=== PATIENT | female | born 1995 | race Caucasian/White ===

== ENCOUNTER → 2017-11-07 16:36 | Outpatient (CLI) | payer OTHER, SELFPAY ==
--- NOTE | 2017-11-07 16:40 | DI.MRI.S_ITS ---
PROCEDURE: MR LUMBAR SPINE WO CON INDICATIONS: Low back pain. Left hip pain TECHNIQUE: Noncontrast sagittal T1 spin echo and T2 fast echo, sagittal STIR, axial T1 and T2 fast spin echo through the lumbar spine. In cases with scoliosis, additional coronal T2 fast spin echo may be performed. COMPARISON: [facility] [place], CR, XR LUMBAR SPINE FLEXION EXTENSION, 10/23/2017, 14:09. FINDINGS: Image quality: Excellent. Alignment and Curvature: There is normal bony alignment. Bone Marrow: Marrow is of normal overall signal. No acute vertebral body compression fractures. Spinal Cord: Conus medullaris terminates at the L1 level. Visualized cord demonstrates normal signal and size. Paraspinous Soft Tissues: No paravertebral masses. L1-L2: Slight disc narrowing and signal loss. Minimal left central protrusion slightly indenting the thecal sac. No stenosis. L2-L3: Normal appearance. L3-L4: Normal appearance. L4-L5: Disc degeneration with narrowing and signal loss. There is a prominent central posterior protrusion estimated at 6 mm in thickness, compressing the thecal sac to a sagittal diameter of 7.5 mm, moderate stenosis. No foraminal stenosis. Early right facet arthropathy. No ligamentous thickening. L5-S1: Disc degeneration with narrowing and signal loss. The C6 millimeter thick central protrusion is present with mild caudal migration. This causes moderate central canal stenosis however the thecal sac is small at this level and there is no appreciable compression or displacement of the sac or of the S1 nerve roots. No foraminal stenosis. Mild facet arthropathy and ligamentous thickening, right greater than left. IMPRESSION: 1. Degenerative disc disease, mild at L1-2 and moderate at L4-5 and L5-S1. Prominent posterior central disc protrusions L4-5 and L5-S1. These cause moderate central canal stenosis at the L4-5 and L5-S1 levels. 2. No foraminal stenosis seen at any level. 3. Mild facet arthropathy L4-5 and L5-S1, right greater than left. Dictated by: Adán Beavers M.D. on 11/08/2017 at 7:59 Approved by: Adán Beavers M.D. on 11/08/2017 at 8:11
== END ==
PROVIDERS: Visit Provider Orthopaedic Surgery
DX: M51.37 Other intervertebral disc degeneration, lumbosacral region (principal); M51.36 Other intervertebral disc degeneration, lumbar region; M54.5 Low back pain; M25.552 Pain in left hip; M48.061 Spinal stenosis, lumbar region without neurogenic claudication; M48.07 Spinal stenosis, lumbosacral region; M47.816 Spondylosis without myelopathy or radiculopathy, lumbar region; M47.817 Spondylosis without myelopathy or radiculopathy, lumbosacral region
CPT/HCPCS: 72148

== ENCOUNTER 2020-12-11 10:03 | Emergency (ER) | payer OTHER, SELFPAY ==
[2020-12-11] VITALS (9 sets, daily range): BP systolic 108–140; BP diastolic 52–85; PULSE 70–81; RESP 12–14; TEMP 36.2; O2SAT 92–100; BMI 45.4
--- NOTE | 2020-12-11 10:41 | ED_ITS ---
HPI - General Adult General Chief complaint: Urogenital-Female Stated complaint: Poss Kidney stones- sent by [facility] Time Seen by Provider: 12/11/20 10:35 Source: patient Mode of arrival: Ambulatory Limitations: no limitations History of Present Illness HPI narrative: 25-year-old female who was sent over from the walk-in clinic for evaluation of right-sided flank pain and concern for renal stone. She states she was woken this morning from sleep with right-sided flank pain. Has been consistent since then. Does get somewhat better with putting pressure over the area but does not get better worse with movement. Does not get better worse with urination. No change in bowel habits. Has had her gallbladder out but no other abdominal surgeries. No chest pain. No shortness of breath. No fevers. Has had nausea and vomiting. No vaginal bleeding. Was seen in the walk-in clinic and had a urinalysis which showed blood and leukocyte esterase. Was sent to the emergency department for further imaging. Related Data Previous Rx's Medication Instructions Recorded hydrocodone 5 mg-acetaminophen 325 1 tab PO Q4-6H PRN #10 tab 12/11/20 mg tablet ondansetron 4 mg disintegrating 4 mg PO Q6H PRN #14 tab 12/11/20 tablet Allergies Allergy/AdvReac Type Severity Reaction Status Date / Time No Known Drug Allergies Allergy Verified 12/11/20 10:19 Review of Systems Constitutional Constitutional: Denies fever(s) and Denies headache(s) ENT Ears, Nose, Mouth, and Throat: Denies headache(s) Cardiovascular Cardiovascular: Reports system reviewed and no additional complaints, except as documented Respiratory Respiratory: Reports system reviewed and no additional complaints, except as documented Gastrointestinal Gastrointestinal: Denies abdominal pain, Denies change in bowel habits, Reports nausea and Reports vomiting Genitourinary Genitourinary: Reports system reviewed and no additional complaints, except as documented Musculoskeletal Musculoskeletal: Reports system reviewed and no additional complaints, except as documented Integumentary/Breasts Skin/Breast: Reports system reviewed and no additional complaints, except as documented Neurologic Neurologic: Denies headache(s) Hematologic/Lymphatic On Anticoagulants: No Allergic/Immunologic Allergic/Immunologic: Reports system reviewed and no additional complaints, except as documented Patient History Medical History Anxiety Social History (Reviewed 12/11/20 @ 10:48 by CHRISSY Montanez Smoking Status: Never smoker Smoking Status: Never smoker alcohol intake frequency: 0-2 drinks per day Substance Use Type: does not use Exam Initial Vital Signs Initial Vital Signs: Vital Signs Temperature 97.1 F L 12/11/20 10:16 Pulse Rate 81 12/11/20 10:16 Respiratory Rate 14 12/11/20 10:16 Blood Pressure 108/52 L 12/11/20 10:16 Pulse Oximetry 99 12/11/20 10:16 Const General: cooperative and comfortable HENMT Head: normal to inspection Eyes General: appearance normal, both eyes and all related structures Resp Auscultation: clear to auscultation bilaterally Cardio Rate: regular rate Rhythm: regular rhythm GI Inspection: normal to inspection Palpation: soft Back/Spine/Pelvis Back: No CVA tenderness Skin General: no rashes or lesions noted Neuro General: patient alert, patient awake, patient oriented x3 and moves all extremities Extrem General: normal to inspection and capillary refill normal Psych Appearance: grossly normal and well kempt Course Orders Ordered: ED Orders 12/11/20 10:00 Test Urine Stat 12/11/20 10:43 CT kidney ureter bladder (KUB) Stat 12/11/20 10:53 Complete Blood Count AUTO DIFF Stat Comprehensive Metabolic Panel Stat Lipase Stat Discontinued Medications Hydromorphone HCl (Hydromorphone 0.5 Mg Inj) 0.5 mg IV NOW ONE Stop: 12/11/20 12:28 Last Admin: 12/11/20 12:30 Dose: 0.5 mg Documented by: MARKELL Sodium Chloride (Normal Saline 0.9%) 1,000 mls @ 1,000 mls/hr IV BOLUS ONE Stop: 12/11/20 11:19 Last Admin: 12/11/20 11:01 Dose: 1,000 mls/hr Documented by: MARKELL Ketorolac Tromethamine (Ketorolac 30 Mg/Ml Vial) 30 mg IV NOW ONE Stop: 12/11/20 10:44 Last Admin: 12/11/20 11:01 Dose: 30 mg Documented by: MARKELL Ondansetron HCl (Ondansetron 4 Mg/2 Ml Inj) 4 mg IV NOW ONE Stop: 12/11/20 10:21 Last Admin: 12/11/20 11:01 Dose: 4 mg Documented by: MARKELL Ondansetron HCl (Ondansetron 4 Mg/2 Ml Inj) 4 mg IV NOW ONE Stop: 12/11/20 11:51 Last Admin: 12/11/20 12:03 Dose: 4 mg Documented by: MARKELL Vital Signs Vital signs: Vital Signs - 8 hr 12/11/20 10:16 12/11/20 11:11 12/11/20 11:16 Temperature 97.1 F L Pulse Rate 81 70 78 Respiratory Rate 14 Blood Pressure 108/52 L 110/65 Pulse Oximetry 99 98 99 Medical Decision Making Lab Data Lab results reviewed: Yes I reviewed the patient's lab results. Result diagrams: 12/11/20 10:53 12/11/20 10:53 Labs: Lab Results 12/11/20 12/11/20 12/11/20 Range/Units 10:00 10:53 10:53 WBC 15.8 H (4.5-11.0) X10^3/uL RBC 4.84 (4.0-5.2) X10^6/uL Hgb 13.1 (12.0-16.0) g/dL Hct 40.5 (36-46) % MCV 83.5 (80-100) fL MCH 27.0 (26-34) PG MCHC 32.3 (30-36) % RDW 13.8 (11.6-14.8) % Plt Count 288 (150-400) X10^3/uL Neut % (Auto) 88.6 H (50-75) % Lymph % (Auto) 8.3 L (25-40) % [place] % (Auto) 2.7 L (3-14) % Eos % (Auto) 0.1 L (2-4) % Baso % (Auto) 0.3 (0-2) % Neut # (Auto) 58678 H (0662-3675) /uL Lymph # (Auto) 1300 (2472-1379) /uL [place] # (Auto) 400 (0-900) /uL Eos # (Auto) 0 (0-450) /uL Baso # (Auto) 100 (0-100) /uL Sodium 136 L (137-145) mmol/L Potassium 4.3 (3.4-5.1) mmol/L Chloride 103 (98-107) mmol/L Carbon Dioxide 25 (22-32) mmol/L BUN 14 (7-17) mg/dL Creatinine 0.84 (0.52-1.04) mg/dL Estimated GFR > 60.0 (>60) mL/min BUN/Creatinine Ratio 16.7 (6-22) Glucose 116 H (70-100) mg/dL Calcium 9.3 (8.4-10.2) mg/dL Total Bilirubin 0.3 (0.2-1.3) mg/dL AST 20 (14-36) IU/L ALT 18 (<35) IU/L Alkaline Phosphatase 69 (38-126) U/L Total Protein 7.2 (6.3-8.2) g/dL Albumin 4.0 (3.5-5.0) g/dL Globulin 3.2 (1.7-4.1) g/dL Albumin/Globulin Ratio 1.3 (1.0-2.8) Lipase 25 (23-300) U/L Urine Test Negative (Negative) Imaging Data CT scan - abdomen/pelvis: Radiologist's Impression: [place] [address] CT Scan Report Signed Patient: Autumn Hidalgo MR#: [id number] : 1995 Acct:[id number] Age/Sex: 25 / F Date of Service: 12/11/20 Loc: Accession Number: [id number] ?? Procedure: CT kidney ureter bladder (KUB) Ordering Provider: Jed Lara D.O. PROCEDURE:? CT KIDNEY URETER BLADDER (KUB) ? INDICATIONS:? Right-sided flank pain concern for stone ? TECHNIQUE:? Axial sections were acquired from the lung bases to the pubic symphysis.? Coronal and sagittal reformats were performed.? For radiation dose reduction, the following was used: ?automated exposure control, adjustment of mA and/or kV according to patient size.? ? COMPARISON:? ? None. ? FINDINGS:? Image quality:? Excellent.? ? Lung bases:? Minimal dependent atelectasis.? ? Heart:? No significant findings. ? URINARY: Right Kidney: ? Minimal pelvocaliectasis.? No stones. Right Ureter:? Calculus at the right UVJ measuring 0.2 cm, ().? Minimal prominence of the right ureter compared to the left. ? Left Kidney: ? No stones or hydronephrosis. Left Ureter:? No hydroureter.? ? Bladder:? Normal wall thickness. No stones. ? ? ? ABDOMEN: Liver:? Unremarkable.? ? Gallbladder:? Surgically absent.? ? Biliary ducts:? Unremarkable.? ? Pancreas:? Unremarkable.? ? Spleen:? No splenomegaly.? ? Adrenal Glands:? No nodule.? ? ? Stomach and Bowel:? Stomach, small bowel loops, and colon are unremarkable.? Normal appendix. Peritoneum:? No abnormal intraperitoneal fluid.? No free air.? ? Ventral Wall: ? No significant hernia.? Abdominal Nodes:? No enlarged retroperitoneal or mesenteric lymph nodes.? Vessels:? Aorta and inferior vena cava are normal in size.? ? PELVIS: Pelvic Organs:? Unremarkable.? ? Pelvic Nodes: Unremarkable. Miscellaneous: No inguinal hernias are seen. ? ? ? Bones:? No suspicious lesion. ? IMPRESSION:? 1. Obstructing calculus at the right UVJ measuring 0.2 cm.? Minimal right hydronephrosis ? 2. No additional kidney stones. ? 3. Post cholecystectomy. ? ? ? Dictated by: Ivan Porras M.D. on 12/11/2020 at 11:20 ? ? Approved by: Ivan Porras M.D. on 12/11/2020 at 11:28?? [facility] Narrative Medical decision making narrative: CT scan shows right-sided 2 mm distal ureteral stone. Low suspicion for urinary tract infection based on her urinalysis. Kidney functions unremarkable. Afebrile. States she feels better after medications here in the ER. Will send home with symptom treatment. She was given return precautions and follow-up instructions. She expressed understanding and agreement. Discharge Plan Departure Patient Disposition: Home Clinical Impression: Right ureteral stone Instructions: DI for Kidney Stones Activity Restrictions/Additional Instructions: The CT scan shows a right-sided 2 mm stone. This is consistent with the source of your pain. Use the nausea and pain medication as needed. Contact your primary doctor for follow-up. Return to the emergency department for any new or worsening symptoms Prescriptions: New ondansetron 4 mg tablet,disintegrating 4 mg PO Q6H PRN (Reason: nausea and vomiting) Qty: 14 RF: 0 hydrocodone-acetaminophen 5-325 mg tablet 1 tab PO Q4-6H PRN (Reason: pain) Qty: 10 RF: 0 Referrals: Miscellaneous,Doctor, MD [Primary Care Provider] -
--- NOTE | 2020-12-11 10:43 | DI.CT.S_ITS ---
PROCEDURE: CT KIDNEY URETER BLADDER (KUB) INDICATIONS: Right-sided flank pain concern for stone TECHNIQUE: Axial sections were acquired from the lung bases to the pubic symphysis. Coronal and sagittal reformats were performed. For radiation dose reduction, the following was used: automated exposure control, adjustment of mA and/or kV according to patient size. COMPARISON: None. FINDINGS: Image quality: Excellent. Lung bases: Minimal dependent atelectasis. Heart: No significant findings. URINARY: Right Kidney: Minimal pelvocaliectasis. No stones. Right Ureter: Calculus at the right UVJ measuring 0.2 cm, (2). Minimal prominence of the right ureter compared to the left. Left Kidney: No stones or hydronephrosis. Left Ureter: No hydroureter. Bladder: Normal wall thickness. No stones. ABDOMEN: Liver: Unremarkable. Gallbladder: Surgically absent. Biliary ducts: Unremarkable. Pancreas: Unremarkable. Spleen: No splenomegaly. Adrenal Glands: No nodule. Stomach and Bowel: Stomach, small bowel loops, and colon are unremarkable. Normal appendix. Peritoneum: No abnormal intraperitoneal fluid. No free air. Ventral Wall: No significant hernia. Abdominal Nodes: No enlarged retroperitoneal or mesenteric lymph nodes. Vessels: Aorta and inferior vena cava are normal in size. PELVIS: Pelvic Organs: Unremarkable. Pelvic Nodes: Unremarkable. Miscellaneous: No inguinal hernias are seen. Bones: No suspicious lesion. IMPRESSION: 1. Obstructing calculus at the right UVJ measuring 0.2 cm. Minimal right hydronephrosis 2. No additional kidney stones. 3. Post cholecystectomy. Dictated by: Ivan Porras M.D. on 12/11/2020 at 11:20 Approved by: Ivan Porras M.D. on 12/11/2020 at 11:28
[2020-12-11 10:54] LABS: Pregnancy Test Urine Negative (Negative)
[2020-12-11] MEDS: KETOROLAC 30 MG/ML VIAL IV (11:01)
[2020-12-11] MEDS: ONDANSETRON 4 MG/2 ML INJ IV ×2 (11:01→12:03)
[2020-12-11] MEDS: SODIUM CHLORIDE 0.9% 1,000 ML 1000 ML IV (11:01)
[2020-12-11 11:12] LABS: Add Manual Diff / Slide Review NO; Basophils Absolute Auto 100 /uL (0-100); Basophils Percent Auto 0.3 % (0-2); Eosinophils Absolute Auto 0 /uL (0-450); Eosinophils Percent Auto 0.1 % (2-4); Hematocrit 40.5 % (36-46); Hemoglobin 13.1 g/dL (12.0-16.0); Lymphocytes Absolute Auto 1300 /uL (1100-4500); Lymphocytes Percent Auto 8.3 % (25-40); Mean Corpuscular HGB Conc 32.3 % (30-36); Mean Corpuscular Volume 83.5 fL (80-100); Monocytes Absolute Auto 400 /uL (0-900); Monocytes Percent Auto 2.7 % (3-14); Neutrophils Absolute Auto 14000 /uL (1500-7000); Neutrophils Percent Auto 88.6 % (50-75); Platelet Count 288 X10^3/uL (150-400); Red Blood Cell Count 4.84 X10^6/uL (4.0-5.2); Red Cell Distribution Width 13.8 % (11.6-14.8); White Blood Cell Count 15.8 X10^3/uL (4.5-11.0)
[2020-12-11 11:20] LABS: Alanine Aminotransferase 18 IU/L (<35); Albumin Globulin Ratio 1.3 (1.0-2.8); Alkaline Phosphatase 69 U/L (38-126); Aspartate Aminotransferase 20 IU/L (14-36); BUN Creatinine Ratio 16.7 (6-22); Bilirubin Total 0.3 mg/dL (0.2-1.3); Blood Urea Nitrogen 14 mg/dL (7-17); Calcium 9.3 mg/dL (8.4-10.2); Carbon Dioxide 25 mmol/L (22-32); Chloride 103 mmol/L (98-107); Estimated Glomerular Filt Rate > 60.0 mL/min (>60); Globulin 3.2 g/dL (1.7-4.1); Glucose 116 mg/dL (70-100); HEMOLYSIS < 15 (0-50); Lipase 25 U/L (23-300); Potassium 4.3 mmol/L (3.4-5.1); Sodium 136 mmol/L (137-145); Total Protein 7.2 g/dL (6.3-8.2)
[2020-12-11] MEDS: HYDROMORPHONE 0.5 MG INJ IV (12:30)
== END 2020-12-11 13:27 | disposition home or self-care (01) ==
PROVIDERS: Emergency Provider Emergency Medicine
DX: N20.1 Calculus of ureter (principal); Z09 Encounter for follow-up examination after completed treatment for conditions other than malignant neoplasm
CPT/HCPCS: 36415; 74176; 80053; 81001; 81025; 83690; 85025; 96361; 96374; 96375; 96376; 99284; J1170; J1885; J2405

== ENCOUNTER → 2021-11-24 18:00 | Outpatient (CLI) | payer OTHER, SELFPAY ==
--- NOTE | 2021-11-24 18:01 | DI.RAD.S_ITS ---
PROCEDURE: XR ANKLE LT MIN 3V INDICATIONS: Rolled foot TECHNIQUE: 3 views of the ankle were acquired. COMPARISON: None. FINDINGS: Bones: No fractures or dislocations. Ankle mortise is normally aligned. No suspicious bony lesions. Soft tissues: No tibiotalar joint effusion. Achilles tendon appears normal. IMPRESSION: No acute radiographic abnormality. If there is high concern for occult injury, consider cross-sectional imaging or repeat radiography. Dictated by: Ricardo Lama M.D. on 11/24/2021 at 18:45 Approved by: Ricardo Lama M.D. on 11/24/2021 at 18:45
--- NOTE | 2021-11-24 18:01 | DI.RAD.S_ITS ---
PROCEDURE: XR FOOT LT MIN 3V INDICATIONS: Rolled foot TECHNIQUE: 3 views of the foot were acquired. COMPARISON: None. FINDINGS: Bones: No fractures or dislocations. No suspicious bony lesions. Soft tissues: No tibiotalar joint effusion. Achilles tendon appears normal. IMPRESSION: No acute radiographic abnormality. If there is high concern for occult injury, consider repeat radiography or cross-sectional imaging. Dictated by: Ricardo Lama M.D. on 11/24/2021 at 18:46 Approved by: Ricardo Lama M.D. on 11/24/2021 at 18:47
== END ==
PROVIDERS: Referring Provider Nurse Practitioner Family; Visit Provider Nurse Practitioner Family
DX: S96.912A Strain of unspecified muscle and tendon at ankle and foot level, left foot, initial encounter (principal); X58.XXXA Exposure to other specified factors, initial encounter
CPT/HCPCS: 73610; 73630

== ENCOUNTER → 2022-11-04 13:21 | Outpatient (CLI) | payer OTHER, SELFPAY | PROVIDERS: Visit Provider Physician Assistant | DX: J02.9 Acute pharyngitis, unspecified (principal) | CPT/HCPCS: 87070 ==

== ENCOUNTER 2023-02-24 13:55 | Emergency (ER) | payer OTHER, SELFPAY ==
[2023-02-24 14:07] VITALS: PULSE 87; RESP 16; TEMP 35.5; O2SAT 96; BMI 48.7
[2023-02-24 14:13] VITALS: BP 124/71
[2023-02-24 14:47] LABS: Influenza A - CEPHEID Flu A NEGATIVE (NEGATIVE); Influenza B - CEPHEID Flu B NEGATIVE (NEGATIVE); Respiratory Syncytial Virus POSITIVE (Negative)
--- NOTE | 2023-02-24 14:47 | ED.URI ---
HPI - URI/Sore Throat <Kimberly Coleman PA-C - Last Filed: 02/24/23 19:50> General Chief Complaint: Upper Respiratory Symptoms Stated Complaint: possible RSV/ cough Time Seen by Provider: 02/24/23 14:30 Source: patient Mode of arrival: Ambulatory History of Present Illness HPI Narrative: 27-year-old female with a history of mild asthma who presents for evaluation of cough and fever. She is been feeling poorly for the last 3 days with a hacking cough sometimes productive, nasal mucus discharge, and a slight fever. She is felt very fatigued. She takes care of her 2-year-old nephew who currently has a diagnosis of RSV. She has been using her albuterol inhaler every 4-6 hours which has not helped much. She denies headache ear pain, sore throat, chest pain, shortness of breath, abdominal pain, nausea vomiting or diarrhea. Related Data Previous Rx's Medication Instructions Recorded hydrocodone 5 mg-acetaminophen 325 1 tab PO Q4-6H PRN pain #10 tabs 12/11/20 mg tablet ondansetron 4 mg disintegrating 4 mg PO Q6H PRN nausea and 12/11/20 tablet vomiting #14 tabs albuterol sulfate 90 mcg/actuation 2 puff inhalation Q6H PRN 02/24/23 aerosol inhaler shortness of breath or wheezing #8.5 grams beclomethasone dipropionate 80 1 inh inhalation BID #10.6 grams 02/24/23 mcg/actuation HFA breath activated aerosol benzonatate 200 mg capsule 200 mg PO TID PRN cough #30 caps 02/24/23 azithromycin 250 mg tablet See Rx Instructions PO .COMPLEX #6 02/26/23 (Zithromax Z-Leandro) tabs Allergies Allergy/AdvReac Type Severity Reaction Status Date / Time No Known Drug Allergies Allergy Verified 02/26/23 10:44 Review of Systems <Kimberly Coleman PA-C - Last Filed: 02/24/23 19:50> Review of Systems ROS Unobtainable: All systems reviewed & are unremarkable except as noted in HPI and below Patient History <Kimberly Coleman PA-C - Last Filed: 02/24/23 19:50> Medical History Anxiety Social History Smoking Status: Never smoker Smoking Status: Never smoker alcohol intake frequency: 0-2 drinks per day Substance Use Type: does not use Exam <Kimberly Coleman PA-C - Last Filed: 02/24/23 19:50> Narrative Exam Narrative: GENERAL: 27 year old overwight patient appears stated age. Appears fatigued. HEAD: Atraumatic. Normocephalic. EYES: Pupils equal round and reactive. Extraocular motions intact. No scleral icterus. No injection or drainage. ENT: Nose without bleeding, purulent drainage. Throat without erythema, tonsillar hypertrophy or exudate. TM's pearly bilarterally. NECK: Trachea midline. Non tender, no LAD CARDIOVASCULAR: Regular rate and rhythm without murmurs, gallops, or rubs. RESPIRATORY: Decreased breath sounds on the right, normal breath sounds on the left, no wheezes or rales noted. NEURO: AOx3. SKIN: No rash or erythema of visible areas Initial Vital Signs Initial Vital Signs: Vital Signs Temperature 96 F L 02/24/23 14:07 Pulse Rate 87 02/24/23 14:07 Respiratory Rate 16 02/24/23 14:07 Pulse Oximetry 96 02/24/23 14:07 Oxygen Delivery Method Room Air 02/24/23 14:07 <Jed Lara DO - Last Filed: 02/24/23 21:41> Initial Vital Signs Initial Vital Signs: Vital Signs Temperature 96 F L 02/24/23 14:07 Pulse Rate 87 02/24/23 14:07 Respiratory Rate 16 02/24/23 14:07 Pulse Oximetry 96 02/24/23 14:07 Oxygen Delivery Method Room Air 02/24/23 14:07 <Estela Martines MD - Last Filed: 02/26/23 19:43> Initial Vital Signs Initial Vital Signs: Vital Signs Temperature 96 F L 02/24/23 14:07 Pulse Rate 87 02/24/23 14:07 Respiratory Rate 16 02/24/23 14:07 Pulse Oximetry 96 02/24/23 14:07 Oxygen Delivery Method Room Air 02/24/23 14:07 Course <Kimberly Coleman PA-C - Last Filed: 02/24/23 19:50> Orders Ordered: ED Orders 02/24/23 14:04 Covid-19 + FLU A/B + RSV - PCR Stat 02/24/23 14:46 CXR [XR chest 2V] Stat Vital Signs Vital signs: Vital Signs - 8 hr 02/24/23 14:07 02/24/23 14:13 Temperature 96 F L Pulse Rate 87 Respiratory Rate 16 Blood Pressure 124/71 Pulse Oximetry 96 Oxygen Delivery Method Room Air <Jed Lara DO - Last Filed: 02/24/23 21:41> Orders Ordered: ED Orders 02/24/23 14:04 Covid-19 + FLU A/B + RSV - PCR Stat 02/24/23 14:46 CXR [XR chest 2V] Stat Vital Signs Vital signs: Vital Signs - 8 hr 02/24/23 14:07 02/24/23 14:13 Temperature 96 F L Pulse Rate 87 Respiratory Rate 16 Blood Pressure 124/71 Pulse Oximetry 96 Oxygen Delivery Method Room Air <Estela Martines MD - Last Filed: 02/26/23 19:43> Orders Ordered: ED Orders 02/24/23 14:04 Covid-19 + FLU A/B + RSV - PCR Stat 02/24/23 14:46 CXR [XR chest 2V] Stat Vital Signs Vital signs: Vital Signs - 8 hr 02/24/23 14:07 02/24/23 14:13 Temperature 96 F L Pulse Rate 87 Respiratory Rate 16 Blood Pressure 124/71 Pulse Oximetry 96 Oxygen Delivery Method Room Air MDM - URI/Sore Throat <Kimberly Coleman PA-C - Last Filed: 02/24/23 19:50> Lab Data Labs: Lab Results 02/24/23 Range/Units 14:04 SARS-CoV-2 (PCR) Negative (Negative) Influenza A (RT-PCR) Flu a negative (NEGATIVE) Influenza B (RT-PCR) Flu b negative (NEGATIVE) RSV (PCR) Positive A (Negative) Imaging Data Chest x-ray: Radiologist's Impression: PROCEDURE: XR CHEST 2V INDICATIONS: Cough, fever TECHNIQUE: 2 views of the chest were acquired. COMPARISON: None. FINDINGS: Surgical changes and devices: None. Lungs and pleura: Mild right upper lobe infiltrate can be seen. Low lung volumes are noted. This causes a crowded appearance to the lung markings and limits evaluation. No pneumothorax or pleural effusions are seen. Mediastinum: Mediastinal contours are normal. Heart size is normal. Bones and chest wall: No suspicious bony abnormalities. Soft tissues appear unremarkable. IMPRESSION: Mild right upper lobe infiltrate. Low lung volumes. Dictated by: Leonard Marrero M.D. on 02/24/2023 at 14:29 Approved by: Leonard Marrero M.D. on 02/24/2023 at 14:30 [facility] Narrative Medical decision making narrative: Patient was positive for RSV but I got a chest x-ray due to decreased breath sounds on the right. and I both reviewed the chest x-ray which appeared normal. Patient was discharged to home with home care instructions and when radiology report came in it was read as mild right upper lobe infiltrate and low lung volumes. This case was then discussed with and we reviewed again the chest x-ray. It is possible this mild infiltrate could represent a viral infection. I called the patient at home and alerted her of the final radiology report and asked that she come back if she were to have a persistent high fever or develop a productive cough. Patient agreed. <Jed Lara DO - Last Filed: 02/24/23 21:41> Lab Data Labs: Lab Results 02/24/23 Range/Units 14:04 SARS-CoV-2 (PCR) Negative (Negative) Influenza A (RT-PCR) Flu a negative (NEGATIVE) Influenza B (RT-PCR) Flu b negative (NEGATIVE) RSV (PCR) Positive A (Negative) <Estela Martines MD - Last Filed: 02/26/23 19:43> Lab Data Labs: Lab Results 02/24/23 Range/Units 14:04 SARS-CoV-2 (PCR) Negative (Negative) Influenza A (RT-PCR) Flu a negative (NEGATIVE) Influenza B (RT-PCR) Flu b negative (NEGATIVE) RSV (PCR) Positive A (Negative) Discharge Plan Departure Patient Disposition: Home Clinical Impression: Respiratory syncytial virus (RSV) Instructions: DI for Respiratory Syncytial Virus -- Adults Activity Restrictions/Additional Instructions: You have RSV infection. Viral in nature and does not respond to antibiotics. Your chest x-ray confirmed you do not have pneumonia. I am prescribing you some medication to help with the cough you can take 2 of those 3 times a day no more than 6 per day. You can also use your albuterol as needed if it helps and I am also prescribing a steroid inhaler for for use for the next 1-2 weeks. A lot of rest increase your fluids consider sleeping with a cool mist humidifier in the room. Tylenol or ibuprofen for pain or discomfort. Please return to the ER for any significant increase in your symptoms. Follow up with your primary provider as needed. Prescriptions: New benzonatate 200 mg capsule 200 mg PO TID PRN (Reason: cough) Qty: 30 0RF albuterol sulfate 90 mcg/actuation HFA aerosol inhaler 2 puff inhalation Q6H PRN (Reason: shortness of breath or wheezing) Qty: 8.5 0RF beclomethasone dipropionate 80 mcg/actuation HFA aerosol breath activated 1 inh inhalation BID Qty: 10.6 0RF No Action ondansetron 4 mg tablet,disintegrating 4 mg PO Q6H PRN (Reason: nausea and vomiting) Qty: 14 0RF hydrocodone-acetaminophen 5-325 mg tablet 1 tab PO Q4-6H PRN (Reason: pain) Qty: 10 0RF azithromycin [Zithromax Z-Leandro] 250 mg tablet See Rx Instructions .ROUTE .COMPLEX Qty: 6 0RF Rx Instructions: For 250 mg dose pack: take 500 mg today (day 1), then 250 mg for 4 days (days 2-5) Referrals: Angie Manning [employer]ALTHC[employer] BUSINESS ANALYST-C [Primary Care Provider] - Stand Alone Forms: Patient Portal/API ED Sign-out <Jed Lara DO - Last Filed: 02/24/23 21:41> [facility] ED Attending Ramos Attestation: This patient was discharged prior to any clinical interaction that I had with her. I had a discussion with the APC regarding the radiology read on the chest x-ray. The patient has known RSV. It sounded like clinically the patient did not have pneumonia. The patient was informed of the finding of the chest x-ray by phone call from the APC. I agree with disposition. <Estela Martines MD - Last Filed: 02/26/23 19:43> [facility] ED Attending Ramos Attestation: I was immediately available in the department for consultation throughout this patient's visit. Estela Martines MD
[2023-02-24 14:49] LABS: COVID-19 CEPHEID 4-PLEX PCR Negative (Negative)
== END 2023-02-24 15:59 | disposition home or self-care (01) ==
PROVIDERS: Emergency Medicine; Emergency Provider Physician Assistant; PCP Nurse Practitioner Family
DX: J98.8 Other specified respiratory disorders (principal); B97.4 Respiratory syncytial virus as the cause of diseases classified elsewhere
CPT/HCPCS: 0241U; 71046; 99282; 99283

== ENCOUNTER 2023-02-26 10:40 | Emergency (ER) | payer OTHER, SELFPAY ==
[2023-02-26 10:42] VITALS: BP 118/80; PULSE 97; RESP 15; TEMP 37.2; O2SAT 94; BMI 48.7
--- NOTE | 2023-02-26 11:15 | ED.URI ---
HPI - URI/Sore Throat <Michael Garrett PA-C - Last Filed: 02/26/23 13:16> General Chief Complaint: Upper Respiratory Symptoms Stated Complaint: RSV, not feeling better Time Seen by Provider: 02/26/23 11:05 Source: patient Mode of arrival: Ambulatory History of Present Illness HPI Narrative: 27-year-old female with past medical history asthma presents to the ED with worsening symptoms following an RSV diagnosis on 02/24/2023. Patient was diagnosed with RSV 2 days ago, had a chest x-ray that radiology read as possible mild right upper lobe infiltrate. Patient was sent home with albuterol and steroid inhaler, benzonatate. ED return precautions indicated for her to return to the ED if her symptoms were to worsen. Patient is here today since her chest feels tighter over the last 2 days. Patient was only able to obtain her inhalers yesterday, had 2 doses, endorses that she did get some relief. Patient denies fever, chills, chest pain, shortness of breath, diarrhea. Patient does endorse some mild intermittent nausea. Related Data Previous Rx's Medication Instructions Recorded hydrocodone 5 mg-acetaminophen 325 1 tab PO Q4-6H PRN pain #10 tabs 12/11/20 mg tablet ondansetron 4 mg disintegrating 4 mg PO Q6H PRN nausea and 12/11/20 tablet vomiting #14 tabs albuterol sulfate 90 mcg/actuation 2 puff inhalation Q6H PRN 02/24/23 aerosol inhaler shortness of breath or wheezing #8.5 grams beclomethasone dipropionate 80 1 inh inhalation BID #10.6 grams 02/24/23 mcg/actuation HFA breath activated aerosol benzonatate 200 mg capsule 200 mg PO TID PRN cough #30 caps 02/24/23 azithromycin 250 mg tablet See Rx Instructions PO .COMPLEX #6 02/26/23 (Zithromax Z-Leandro) tabs Allergies Allergy/AdvReac Type Severity Reaction Status Date / Time No Known Drug Allergies Allergy Verified 02/26/23 10:44 Review of Systems <Michael Garrett PA-C - Last Filed: 02/26/23 13:16> Constitutional Constitutional: Denies chills, Reports fatigue, Denies fever(s), Denies frequent falls, Denies lethargy and Denies weakness Eyes Eyes: Denies change in vision, Denies eye discharge, Denies irritation and Denies loss of vision ENT Ears, Nose, Mouth, and Throat: Denies change in voice, Denies dizziness, Denies neck pain, Denies sore throat and Denies throat swelling Cardiovascular Cardiovascular: Denies chest pain, Denies irregular heart rhythm, Denies lightheadedness, Denies palpitations, Denies dyspnea, Denies dyspnea on exertion and Denies orthopnea Respiratory Respiratory: Reports chest congestion, Reports cough, Denies dyspnea, Denies dyspnea on exertion and Denies wheezing Comments: Chest tightness Gastrointestinal Gastrointestinal: Denies abdominal pain, Denies change in bowel habits, Denies diarrhea, Reports nausea and Denies vomiting Musculoskeletal Musculoskeletal: Denies neck pain and Denies numbness Integumentary/Breasts Skin/Breast: Denies pruritus, Denies erythema, Denies rash and Denies wounds Neurologic Neurologic: Denies behavioral changes, Denies confusion, Denies dizziness, Denies frequent falls, Denies loss of vision, Denies numbness and Denies weakness Psychiatric Psychiatric: Denies anxiety, Denies behavioral changes, Denies confusion, Denies depression, Denies homicidal ideation and Denies suicidal ideation Endocrine Endocrine: Reports fatigue, Denies flushing and Denies palpitations Hematologic/Lymphatic Hematologic/Lymphatic: Denies easy bruising Allergic/Immunologic Allergic/Immunologic: Denies urticaria, Denies throat swelling and Denies wheezing Patient History <Michael Garrett PA-C - Last Filed: 02/26/23 13:16> Medical History Anxiety Social History Smoking Status: Never smoker Smoking Status: Never smoker alcohol intake frequency: holidays/special occasions only Substance Use Type: does not use Exam <Michael Garrett PA-C - Last Filed: 02/26/23 13:16> Narrative Exam Narrative: Const General:?cooperative, healthy appearing and comfortable [facility] Head:?normal to inspection Ears:?hearing grossly normal bilaterally Nose:?external nose normal Face and sinus:?normal facial exam and sinuses nontender Mouth:?oral mucosae normal Throat:?posterior oropharynx normal Eyes General:?appearance normal, both eyes and all related structures Neck Neck:?normal visual inspection and no lymphadenopathy noted Resp Effort & Inspection:?normal respiratory effort Auscultation:?clear to auscultation bilaterally Cardio Rate:?regular rate Rhythm:?regular rhythm Neuro General:?patient alert, patient awake and patient oriented x3 Initial Vital Signs Initial Vital Signs: Vital Signs Temperature 99.0 F 02/26/23 10:42 Pulse Rate 97 H 02/26/23 10:42 Respiratory Rate 15 02/26/23 10:42 Blood Pressure 118/80 02/26/23 10:42 Pulse Oximetry 94 02/26/23 10:42 Oxygen Delivery Method Room Air 02/26/23 10:42 <Katie Parry MD - Last Filed: 02/26/23 16:31> Initial Vital Signs Initial Vital Signs: Vital Signs Temperature 99.0 F 02/26/23 10:42 Pulse Rate 97 H 02/26/23 10:42 Respiratory Rate 15 02/26/23 10:42 Blood Pressure 118/80 02/26/23 10:42 Pulse Oximetry 94 02/26/23 10:42 Oxygen Delivery Method Room Air 02/26/23 10:42 Course <Michael Garrett PA-C - Last Filed: 02/26/23 13:16> Orders Ordered: ED Orders 02/26/23 11:41 CXR [XR chest 2V] Stat Vital Signs Vital signs: Vital Signs - 8 hr 02/26/23 10:42 02/26/23 13:10 Temperature 99.0 F Pulse Rate 97 H 70 Respiratory Rate 15 16 Blood Pressure 118/80 121/77 Pulse Oximetry 94 96 Oxygen Delivery Method Room Air Room Air <Katie Parry MD - Last Filed: 02/26/23 16:31> Orders Ordered: ED Orders 02/26/23 11:41 CXR [XR chest 2V] Stat Vital Signs Vital signs: Vital Signs - 8 hr 02/26/23 10:42 02/26/23 13:10 Temperature 99.0 F Pulse Rate 97 H 70 Respiratory Rate 15 16 Blood Pressure 118/80 121/77 Pulse Oximetry 94 96 Oxygen Delivery Method Room Air Room Air MDM - URI/Sore Throat <Michael Garrett PA-C - Last Filed: 02/26/23 13:16> MDM Narrative Medical decision making narrative: 27-year-old female with past medical history asthma presents to the ED with worsening symptoms following an RSV diagnosis on 02/24/2023. Concern for viral infection from RSV versus pneumonia versus other. Will repeat chest x-ray, reassess. Chest x-ray shows right upper lobe infiltrate consistent with pneumonia, unchanged from prior x-ray. Will treat with azithromycin. Recommend supportive care with Tylenol, ibuprofen, benzonatate, inhalers. Recommend follow-up with PCP. ED return precautions discussed with patient. Patient verbalized understanding. Medical records reviewed: Yes Discharge Plan Departure Patient Disposition: Home Clinical Impression: Pneumonia Qualifiers: Pneumonia type: due to other aerobic Gram-negative bacteria Laterality: right Lung location: upper lobe of lung Qualified Code(s): J15.69 - Pneumonia due to other Gram-negative bacteria Instructions: DI for Pneumonia -- Adult Activity Restrictions/Additional Instructions: You were evaluated in the ED today for worsening symptoms from a RSV infection. The repeat chest x-ray did show the unchanged consolidation in the right lung. You are being treated for pneumonia with antibiotics. Please take the antibiotics as prescribed. Please follow-up with your PCP as soon as possible. Return to the ED if you have worsening symptoms, shortness of breath, chest pain. Prescriptions: New azithromycin [Zithromax Z-Leandro] 250 mg tablet See Rx Instructions .ROUTE .COMPLEX Qty: 6 0RF Rx Instructions: For 250 mg dose pack: take 500 mg today (day 1), then 250 mg for 4 days (days 2-5) No Action benzonatate 200 mg capsule 200 mg PO TID PRN (Reason: cough) Qty: 30 0RF albuterol sulfate 90 mcg/actuation HFA aerosol inhaler 2 puff inhalation Q6H PRN (Reason: shortness of breath or wheezing) Qty: 8.5 0RF beclomethasone dipropionate 80 mcg/actuation HFA aerosol breath activated 1 inh inhalation BID Qty: 10.6 0RF ondansetron 4 mg tablet,disintegrating 4 mg PO Q6H PRN (Reason: nausea and vomiting) Qty: 14 0RF hydrocodone-acetaminophen 5-325 mg tablet 1 tab PO Q4-6H PRN (Reason: pain) Qty: 10 0RF Referrals: Angie Manning, [employer] [Primary Care Provider] - Stand Alone Forms: Patient Portal/API ED Sign-out <Katie Parry MD - Last Filed: 02/26/23 16:31> Cosign ED Attending Cosignature Attestation: I did not see this patient. I was available all times for consultation.
--- NOTE | 2023-02-26 11:41 | DI.RAD.S_ITS ---
PROCEDURE: XR CHEST 2V INDICATIONS: RSV; ?PNA TECHNIQUE: 2 views of the chest were acquired. COMPARISON: [facility], , XR CHEST 2V, 02/24/2023, 14:52. FINDINGS: Surgical changes and devices: None. Lungs and pleura: Right upper lobe infiltrate is unchanged compared to the prior study on 02/24/2023. No pneumothorax or pleural effusion. Mediastinum: Mediastinal contours are normal. Heart size is normal. Bones and chest wall: No suspicious bony abnormalities. Soft tissues appear unremarkable. IMPRESSION: Right upper lobe infiltrate consistent with pneumonia, unchanged Dictated by: Regino Faye M.D. on 02/26/2023 at 11:43 Approved by: Regino Faye M.D. on 02/26/2023 at 11:43
[2023-02-26 13:10] VITALS: BP 121/77; PULSE 70; RESP 16; O2SAT 96
== END 2023-02-26 13:10 | disposition home or self-care (01) ==
PROVIDERS: Emergency Provider Student in an Organized Health Care Education/Training Program; PCP Nurse Practitioner Family
DX: J15.69 Pneumonia due to other Gram-negative bacteria (principal)
CPT/HCPCS: 71046; 99283

== ENCOUNTER → 2023-03-09 09:47 | Outpatient (CLI) | payer OTHER, SELFPAY ==
--- NOTE | 2023-03-09 09:49 | DI.RAD.S_ITS ---
PROCEDURE: XR RIBS BI MIN 4V W CXR1V INDICATIONS: Bilateral rib pain TECHNIQUE: 7 views of the bilateral lower ribs were acquired, along with a single view chest. COMPARISON: None. FINDINGS: Surgical changes and devices: None. Bones and chest wall: Nondisplaced fracture of the lateral 9th right rib. No suspicious bony lesions. Overlying soft tissues appear unremarkable. Lungs and pleura: No pleural effusions or pneumothorax. Lungs appear clear. Mediastinum: Mediastinal contours appear normal. Heart size is normal. IMPRESSION: Nondisplaced right 9th rib fracture. Dictated by: Jimmy Schaefer M.D. on 03/09/2023 at 9:23 Approved by: Jimmy Schaefer M.D. on 03/09/2023 at 9:25
== END ==
PROVIDERS: PCP Nurse Practitioner Family; Referring Provider Registered Nurse; Visit Provider Registered Nurse
DX: S22.31XA Fracture of one rib, right side, initial encounter for closed fracture (principal); R07.81 Pleurodynia
CPT/HCPCS: 71111